=== PATIENT | female | born 1990 | race Caucasian/White ===

== ENCOUNTER 2017-04-21 13:34 | Emergency (ER) | payer MEDICAID ==
--- NOTE | 2017-04-21 16:30 | ER Document Report ---
ED GI/ - General Mode of Arrival: Ambulatory Information source: Patient TRAVEL OUTSIDE OF THE [place] IN LAST 30 DAYS: No - HPI Patient complains to provider of: Abdominal pain Onset: Yesterday Location: RLQ, Suprapubic Menstrual period history: - 17 weeks Associated symptoms: Other - see notes above <DARCIE ORDOÑEZ - Last Filed: 04/21/17 21:36> <NGUYỄN CONDE - Last Filed: 04/21/17 22:50> - General Chief Complaint: Lower Abdominal Pain Stated Complaint: LOWER ABDOMINAL PAIN Time Seen by Provider: 04/21/17 15:57 Notes: 27 year old female (17 weeks; A0) with history of ovarian and cervical cysts and UTIs presents to the ED complaining of RLQ and suprapubic abdominal pain that has been present for over 1 year, but acutely worsened yesterday. Patient reports that the pain was 'tolerable' prior to yesterday when it suddenly became 'intolerable'. Patient is worried that the cause of pain might be affecting her . Patient was seen by her OB (Dr. Aceves) on 04/14/2017 and everything was normal. Patient denies vomiting, diarrhea, or fever. Patient denies history of an appendectomy. (DARCIE ORDOÑEZ) - Related Data Allergies/Adverse Reactions: No Known Drug Allergies Allergy (Verified 07/31/13 04:59) Past Medical History - General Information source: Patient - Social History Smoking Status: Never Smoker Chew tobacco use (# tins/day): No Frequency of alcohol use: None Drug Abuse: None Family History: Reviewed & Not Pertinent Patient has suicidal ideation: No Patient has homicidal ideation: No Renal/ Medical History: Reports: Hx Ovarian Cysts, Other - cervical cysts and UTIs. Denies: Hx Peritoneal Dialysis Past Surgical History: Denies: Hx Appendectomy - Immunizations Hx Diphtheria, Pertussis, Tetanus Vaccination: Yes - 06/2013 <DARCIE ORDOÑEZ - Last Filed: 04/21/17 21:36> Review of Systems - Review of Systems Constitutional: No symptoms reported. denies: Fever EENT: No symptoms reported Cardiovascular: No symptoms reported Respiratory: No symptoms reported Gastrointestinal: See HPI, Abdominal pain - RLQ and suprapubic. denies: Diarrhea, Vomiting Genitourinary: No symptoms reported Female Genitourinary: See HPI, - 17 weeks Musculoskeletal: No symptoms reported Skin: No symptoms reported Hematologic/Lymphatic: No symptoms reported Neurological/Psychological: No symptoms reported -: Yes All other systems reviewed and negative <DARCIE ORDOÑEZ - Last Filed: 04/21/17 21:36> Physical Exam <DARCIE ORDOÑEZ - Last Filed: 04/21/17 21:36> <NGUYỄN CONDE - Last Filed: 04/21/17 22:50> - Vital signs Vitals: Temp Pulse Resp BP Pulse Ox 98.5 F 87 14 116/63 100 04/21/17 14:04 04/21/17 14:04 04/21/17 14:04 04/21/17 14:04 04/21/17 14:04 - Notes Notes: GENERAL: Alert, interacts well. No acute distress. HEAD: Normocephalic, atraumatic. EYES: Pupils equal, round, and reactive to light. Extraocular movements intact. ENT: Oral mucosa moist, tongue midline. NECK: Full range of motion. Supple. Trachea midline. LUNGS: Clear to auscultation bilaterally, no wheezes, rales, or rhonchi. No respiratory distress. HEART: Regular rate and rhythm. No murmurs, gallops, or rubs. ABDOMEN: Soft. Non-distended. Bowel sounds present in all 4 quadrants. Tenderness to palpation slightly right of the midline suprapubic region and the fundus. EXTREMITIES: Moves all 4 extremities spontaneously. No edema, radial pulses 2/4 bilaterally. No cyanosis. NEUROLOGICAL: Alert and oriented x3. Normal speech. PSYCH: Normal affect, normal mood. SKIN: Warm, dry, normal turgor. No rashes or lesions noted. (DARCIE ORDOÑEZ) Course - Laboratory Result Diagrams: 04/21/17 16:39 04/21/17 16:39 <DARCIE ORDOÑEZ - Last Filed: 04/21/17 21:36> - Laboratory Result Diagrams: 04/21/17 16:39 04/21/17 16:39 <NGUYỄN CONDE - Last Filed: 04/21/17 22:50> - Re-evaluation Re-evalutation: 04/21/17 18:45 CBC shows mild anemia with a hemoglobin of 11.6 consistent with anemia , white blood cell count is normal which makes appendicitis quite unlikely, this combined with her abdominal exam shows tenderness in the right adnexa rather than McBurney's point makes me doubt appendicitis as well as the chronicity of this pain, CMP unremarkable, urinalysis unremarkable, transvaginal ultrasound that was ordered to look at both the baby as well as the ovary was apparently done transabdominally by radiology rather than transvaginally and it shows a 2 cm by 1.8 cm x 1.2 cm hypoechoic area on the right adnexa that appears consistent with a cyst. No evidence of torsion. No free fluid. Single intrauterine is active and has a normal heart rate. Discussed with patient that her pain is likely coming from the right ovarian cyst and is worsened by the enlarging uterus pushing on the ovary. No indication for surgical intervention at this time. Discussed with patient that she may take Tylenol for pain, actually offered a single dose of Vicodin here for her increasing pain as well which the patient declined, recommend patient follow-up with her OB as an outpatient. (NGUYỄN CONDE) - Vital Signs Vital signs: Temp Pulse Resp BP Pulse Ox 97.4 F 94 16 129/83 H 100 04/21/17 18:53 04/21/17 18:53 04/21/17 18:53 04/21/17 18:53 04/21/17 18:53 - Laboratory Laboratory results interpreted by me: 04/21/17 04/21/17 04/21/17 15:50 16:39 16:39 RBC 3.49 L Hgb 11.6 L Hct 32.0 L MCHC 36.2 H Chloride 108 H Urine HCG, Qual POSITIVE H Discharge <DARCIE ORDOÑEZ - Last Filed: 04/21/17 21:36> <NGUYỄN CONDE - Last Filed: 04/21/17 22:50> - Discharge Clinical Impression: Right ovarian cyst, with abdominal pain of right lower quadrant, antepartum Condition: Stable Disposition: HOME, SELF-CARE Additional Instructions: Today we found a 2 cm x 1.8 cm x 1.2 cm cyst on your right ovary. I suspect this is what causing your pain. This is may go away on its own, and may persist throughout all of or it may get larger and potentially rupture. If your pain worsen significantly, you develop fevers or you develop any new or concerning symptoms please return to the emergency department. Please follow-up with your [employer]ATOR Dr. Aceves within the next 2 weeks. Referrals: MONIKA ACEVES MD [ACTIVE STAFF] - Follow up in 1 week Scribe Attestation: 04/21/17 22:50 I personally performed the services described in the documentation, reviewed and edited the documentation which was dictated to the scribe in my presence, and it accurately records my words and actions. (NGUYỄN CONDE) Scribe Documentation - Scribe Written by Hollis:: Hollis Almazan, 04/21/2017 1736 acting as scribe for :: Alex <DARCIE ORDOÑEZ - Last Filed: 04/21/17 21:36>
[2017-04-21 16:48] LABS: APPEARANCE,URINE CLEAR; BILIRUBIN,URINE NEGATIVE (NEGATIVE); GLUCOSE, URINE NEGATIVE (NEGATIVE); KETONES,URINE NEGATIVE (NEGATIVE); LEUKOCYTE ESTERASE,URINE NEGATIVE (NEGATIVE); NITRITE,URINE NEGATIVE (NEGATIVE); PROTEIN,URINE NEGATIVE (NEGATIVE); URINE SPECIFIC GRAVITY 1.002; UROBILINOGEN,URINE NEGATIVE mg/dL (<2.0)
[2017-04-21 16:50] LABS: ABSOLUTE EOSINOPHILS # (AUTO) 0.2 10^3/uL (0.0-0.6); ABSOLUTE LYMPHOCYTES (AUTO) 2.6 10^3/uL (0.5-4.7); ABSOLUTE MONOCYTES (AUTO) 0.6 10^3/uL (0.1-1.4); ABSOLUTE NEUT (AUTO) 6.7 10^3/uL (1.7-8.2); BASOPHILS % (AUTO) 0.4 % (0-2); EOSINOPHILS % (AUTO) 1.6 % (0-6); HEMOGLOBIN 11.6 g/dL (12.0-15.5); HGB HCT DIFFERENCE 2.8; LYMPHOCYTES % (AUTO) 25.8 % (13-45); MEAN CORPUSCULAR HEMOGLOBIN 33.2 pg (27.0-33.4); MEAN CORPUSCULAR HGB CONC 36.2 g/dL (32.0-36.0); MEAN CORPUSCULAR VOLUME 92 fl (80-97); MONOCYTES % (AUTO) 5.8 % (3-13); RED BLOOD COUNT 3.49 10^6/uL (3.72-5.28); RED CELL DISTRIBUTION WIDTH 13.2 % (11.5-14.0); SEGMENTED NEUTROPHILS % (AUTO) 66.4 % (42-78); WHITE BLOOD COUNT 10.1 10^3/uL (4.0-10.5)
[2017-04-21 17:12] LABS: ALANINE AMINOTRANSFERASE 27 U/L (9-52); ALKALINE PHOSPHATASE 47 U/L (38-126); ANION GAP 11 (5-19); ASPARTATE AMINO TRANSFERASE 18 U/L (14-36); BILIRUBIN,DIRECT 0.3 mg/dL (0.0-0.4); BILIRUBIN,TOTAL 0.6 mg/dL (0.2-1.3); BLOOD UREA NITROGEN 8 mg/dL (7-20); CALCIUM 9.5 mg/dL (8.4-10.2); CARBON DIOXIDE 23 mmol/L (22-30); CHLORIDE 108 mmol/L (98-107); CREATININE RESULT 0.54 mg/dL (0.52-1.25); GLUCOSE 90 mg/dL (75-110); LIPASE 58.3 U/L (23-300); POTASSIUM 4.3 mmol/L (3.6-5.0); SODIUM 141.7 mmol/L (137-145); TOTAL PROTEIN 6.7 g/dL (6.3-8.2)
--- NOTE | 2017-04-21 18:07 | RADIOLOGY REPORT (SQ) ---
EXAM DESCRIPTION: U/S OB 14+ TA/1 GEST W/DOPPLER COMPLETED DATE/TIME: 04/21/2017 5:55 pm REASON FOR STUDY: RLQ pain, r/o cyst vs torsion, is 17 wks preg COMPARISON: None. TECHNIQUE: Static and Dynamic grayscale imaging performed of gravid uterus using transabdominal appr oach. Additional selected color Doppler and spectral images recorded. All stored on PACS. LIMITATIONS: None. FINDINGS: EGA: 17 weeks 4 days NALLELY: 09/25/2017 EFW: 205+/- 30 grams PERCENTILE: Not calculated. ANN: 4 cm PLACENTA: Anterior grade 1 PRESENTATION: Cephalic. ANATOMY: HEART RATE: 158 beats per minute. FOUR CHAMBER HEART: Not verified. THREE VESSEL CORD: Yes. CORD INSERTION: Not seen. KIDNEYS AND BLADDER: Not seen. STOMACH: Visualized. Appears normal. SPINE: Not well seen. BRAIN AND LATERAL VENTRICLES: Visualized. Appear normal. OTHER: No other significant finding. MATERNAL ADNEXA: There is a 2 x 1.8 x 1.2 cm hypoechoic area associated with the right ovary. CERVICAL LENGTH: Not measured. Closed. OTHER: No other significant finding. IMPRESSION: LIVING INTRAUTERINE . ESTIMATED GESTATIONAL AGE 17 weeks 4 days NO VISUALIZED ANOMALIES. SOME ASPECTS OF THE ANATOMY WERE NOT ABLE TO BE SEEN. Trimester of : Second trimester - 13 weeks 1 day to 27 weeks 6 days. TECHNICAL DOCUMENTATION: JOB ID: [id number]- All Rights Reserved
[2017-04-21 18:54] VITALS: BP 129/83
== END 2017-04-21 18:54 | disposition home or self-care (01) ==
LOC: ER 13:34
DX: O34.82 Maternal care for other abnormalities of pelvic organs, second trimester (principal); N83.201 Unspecified ovarian cyst, right side; O26.92 Pregnancy related conditions, unspecified, second trimester; R10.31 Right lower quadrant pain; Z3A.17 17 weeks gestation of pregnancy
CPT/HCPCS: 36415; 76805; 80053; 81001; 81025; 83690; 85025; 93976; 99284

== ENCOUNTER 2017-10-01 17:36 | Outpatient (CLI) | payer MEDICAID | END 2017-10-01 18:41 | disposition home or self-care (01) | LOC: LC 17:36 | PROVIDERS: ATTEND Obstetrics & Gynecology Gynecology | PROC: 4A1HXCZ Monitoring of Products of Conception, Cardiac Rate, External Approach (ICD-10-PCS; principal; 2017-10-01) | DX: O36.8130 Decreased fetal movements, third trimester, not applicable or unspecified (principal); Z3A.40 40 weeks gestation of pregnancy | CPT/HCPCS: 59025 ==

== ENCOUNTER → 2017-11-17 | Outpatient (CLI) | payer MEDICAID | LOC: OD 15:59 | PROVIDERS: ATTEND Student in an Organized Health Care Education/Training Program | DX: Z12.73 Encounter for screening for malignant neoplasm of ovary (principal) | CPT/HCPCS: 36415; 82378; 86304 ==

== ENCOUNTER 2019-12-05 10:08 | Emergency (ER) | payer SELFPAY ==
[2019-12-05] MEDS ORDERED: ONDANSETRON HCL INJ/PF 4 MG/2 ML SDV IV ONE (11:16)
[2019-12-05] MEDS ORDERED: NORMAL SALINE 1000 ML 1,000 ML IV ONE (11:16)
--- NOTE | 2019-12-05 11:16 | ER Document Report ---
ED GI/ - General Chief Complaint: Nausea/Vomiting/Diarrhea Stated Complaint: DIARRHEA/NAUSEA Time Seen by Provider: 12/05/19 10:32 Primary Care Provider: EPHRAIM BERNARD MD [Primary Care Provider] - Follow up as needed Mode of Arrival: Ambulatory Information source: Patient Notes: 29-year-old female with no previous medical problems presents to the emergency room complaining of multiple daily episodes of diarrhea that started 3 days ago. Patient states she was extremely busy at work on so she drank multiple cups of coffee and thought that was causing her diarrhea. However the diarrhea has been persistent. Also complains of nausea, vomiting, abdominal cramping. States she is unable to tolerate anything p.o. Also started with some vaginal spotting on night. States her menstrual cycle 2 weeks ago was early. Sexually active not use anything for control. Denies any fevers. Denies any bad food she can think of. Denies any recent travel. No known COVID-19 exposure. TRAVEL OUTSIDE OF THE [place] IN LAST 30 DAYS: No - Related Data Allergies/Adverse Reactions: No Known Drug Allergies Allergy (Verified 10/03/17 08:13) Past Medical History - General Information source: Patient - Social History Smoking Status: Current Every Day Smoker Chew tobacco use (# tins/day): No Frequency of alcohol use: None Drug Abuse: None Family History: Reviewed & Not Pertinent Patient has homicidal ideation: No Renal/ Medical History: Reports: Hx Ovarian Cysts. Denies: Hx Peritoneal Dialysis Past Surgical History: Denies: Hx Appendectomy - Immunizations Hx Diphtheria, Pertussis, Tetanus Vaccination: Yes - 06/2013 Review of Systems - Review of Systems Constitutional: denies: Fever, Malaise EENT: No symptoms reported Cardiovascular: No symptoms reported Respiratory: No symptoms reported Gastrointestinal: Abdominal pain, Diarrhea, Nausea, Vomiting Female Genitourinary: Vaginal bleeding Musculoskeletal: No symptoms reported Skin: No symptoms reported -: Yes All other systems reviewed and negative Physical Exam - Vital signs Vitals: Temp Pulse Resp BP Pulse Ox 98.2 F 94 16 130/75 H 100 12/05/19 10:24 12/05/19 10:24 12/05/19 10:24 12/05/19 10:24 12/05/19 10:24 - General General appearance: Appears well, Alert In distress: Mild - Respiratory Respiratory status: No respiratory distress Chest status: Nontender Breath sounds: Normal Chest palpation: Normal - Cardiovascular Rhythm: Regular Heart sounds: Normal auscultation Murmur: No - Abdominal Inspection: Normal Distension: No distension Bowel sounds: Normal Tenderness: Tender - Generalized tenderness on palpation. No guarding, no rebound. No: Guarding, Rebound Organomegaly: No organomegaly - Back Back: Normal, Nontender. No: CVA tenderness - Neurological Neuro grossly intact: Yes Cognition: Normal Orientation: AAOx4 Aureliano Coma Scale Eye Opening: Spontaneous Aureliano Coma Scale Verbal: Oriented Aureliano Coma Scale Motor: Obeys Commands Aureliano Coma Scale Total: 15 Speech: Normal Motor strength normal: LUE, RUE, LLE, RLE Sensory: Normal - Skin Skin Temperature: Warm Skin Moisture: Dry Skin Color: Normal Course - Re-evaluation Re-evalutation: 12/05/19 15:19 Patient is resting comfortably she is able to tolerate p.o. fluids. Afebrile, nontoxic-appearing. Pain-free on exam. Reviewed lab results with patient, C. difficile negative. Aware remaining stool studies are still pending. Patient was given strict return to the emergency room guidelines. Return for any new or worsening symptoms. All questions were answered. Patient verbalized unders tanding and agrees with plan of care. Presentation of an overall well-appearing patient in no acute distress with complaints of nausea, vomiting, diarrhea. This is consistent with likely viral gastroenteritis. Patient has no abdominal tenderness on exam and specifically no tenderness in the RLQ, LLQ, RUQ. Overall well hydrated on exam. Able to tolerate oral intake here in the emergency department. Low clinical suspicion for any acute life-threatening etiology based on exam and history including acute cholecystitis, SBO, appendicitis, nephrolithiasis, or pylonephritis. CMP without evidence of acute hepatitis or significant dehydration. Will plan for discharge at this time with return precautions and followup recommendations. 12/05/19 18:56 - Vital Signs Vital signs: Temp Pulse Resp BP Pulse Ox 97.8 F 70 16 114/65 98 12/05/19 14:41 12/05/19 14:41 12/05/19 14:41 12/05/19 14:41 12/05/19 14:41 - Laboratory Result Diagrams: 12/05/19 11:40 12/05/19 11:40 Laboratory results interpreted by me: 12/05/19 12/05/19 11:40 13:40 Sodium 136.3 L Urine Protein 100 H Urine Blood LARGE H Discharge - Discharge Clinical Impression: Gastroenteritis Nausea & vomiting Qualifiers: Vomiting type: unspecified Vomiting Intractability: non-intractable Qualified Code(s): R11.2 - Nausea with vomiting, unspecified Diarrhea Qualifiers: Diarrhea type: unspecified type Qualified Code(s): R19.7 - Diarrhea, unspecified Condition: Stable Disposition: HOME, SELF-CARE Instructions: Clear Liquid Diet ([facility]), Diarrhea, Nonspecific ([facility]), Gastroenteritis (adult) ([facility]) Additional Instructions: You have been seen in the Emergency Department (ED) today for nausea and vomiting. Your work up today has not shown a clear cause for your symptoms. You have been prescribed Zofran; please use as prescribed as needed for your nausea. Follow up with your doctor as soon as possible regarding today's emergent visit and your symptoms of nausea. Return to the Emergency Department (ED) if you develop abdominal pain, bloody vomiting, bloody diarrhea, if you are unable to tolerate fluids due to vomiting, or if you develop other symptoms that concern you. Clear liquid diet for the next 24 hours. [id number] Imodium. You will be notified if any of your remaining stool studies are positive. Return for any new or worsening symptoms. Follow-up with your primary care physician if not improving in 2 to 3 days. Referrals: EPHRAIM BERNARD MD [Primary Care Provider] - Follow up as needed
[2019-12-05 12:16] LABS: ABSOLUTE MONOCYTES (AUTO) 0.5 10^3/uL (0.1-1.4); HEMOGLOBIN 13.6 g/dL (12.0-15.5); TOTAL CELLS COUNTED % (AUTO) 100 %
[2019-12-05 12:19] LABS: ABSOLUTE LYMPHOCYTES (AUTO) 1.2 10^3/uL (0.5-4.7); ABSOLUTE NEUT (AUTO) 4.1 10^3/uL (1.7-8.2); BASOPHILS % (AUTO) 0.6 % (0-2); EOSINOPHILS % (AUTO) 0.6 % (0-6); HEMATOCRIT 38.4 % (36.0-47.0); MEAN CORPUSCULAR HEMOGLOBIN 32.4 pg (27.0-33.4); MEAN CORPUSCULAR HGB CONC 35.4 g/dL (32.0-36.0); MEAN CORPUSCULAR VOLUME 92 fl (80-97); PLATELET COUNT 229 10^3/uL (150-450); RED CELL DISTRIBUTION WIDTH 12.7 % (11.5-14.0); SEGMENTED NEUTROPHILS % (AUTO) 69.8 % (42-78); WHITE BLOOD COUNT 5.8 10^3/uL (4.0-10.5)
[2019-12-05 12:29] LABS: ALBUMIN 4.3 g/dL (3.5-5.0); ALKALINE PHOSPHATASE 46 U/L (38-126); ANION GAP 7 (5-19); ASPARTATE AMINO TRANSFERASE 20 U/L (14-36); BILIRUBIN,TOTAL 0.6 mg/dL (0.2-1.3); BLOOD UREA NITROGEN 12 mg/dL (7-20); CALCIUM 9.2 mg/dL (8.4-10.2); CARBON DIOXIDE 28 mmol/L (22-30); CHLORIDE 101 mmol/L (98-107); GLUCOSE 91 mg/dL (75-110); POTASSIUM 3.7 mmol/L (3.6-5.0); TOTAL PROTEIN 7.4 g/dL (6.3-8.2)
[2019-12-05] MEDS ORDERED: ACETAMINOPHEN 325 MG TABLET PO ONE (12:30)
[2019-12-05 14:23] LABS: AMORPHOUS SEDIMENT,URINE TRACE /HPF; APPEARANCE,URINE TURBID; BILIRUBIN,URINE NEGATIVE (NEGATIVE); COLOR,URINE YELLOW; GLUCOSE, URINE NEGATIVE (NEGATIVE); KETONES,URINE NEGATIVE (NEGATIVE); LEUKOCYTE ESTERASE,URINE NEGATIVE (NEGATIVE); NITRITE,URINE NEGATIVE (NEGATIVE); PROTEIN,URINE 100 mg/dL (NEGATIVE); URINE SPECIFIC GRAVITY 1.028; UROBILINOGEN,URINE NEGATIVE mg/dL (<2.0)
[2019-12-05 14:43] VITALS: BP 114/65
[2019-12-05 15:15] LABS: C DIFFICILE GDH NEGATIVE (NEGATIVE)
== END 2019-12-05 15:47 | disposition home or self-care (01) ==
LOC: ER 10:08
DX: K52.9 Noninfective gastroenteritis and colitis, unspecified (principal); R11.2 Nausea with vomiting, unspecified; R10.9 Unspecified abdominal pain; F17.200 Nicotine dependence, unspecified, uncomplicated
CPT/HCPCS: 99284; 96360; 36415; 87045; 87205; 87209; 87177; 84703; 85025; 80053; 81001; 87324; 87449; J7030